=== PATIENT | male | born 1970 | race African-American/Black ===

== ENCOUNTER 2021-01-09 23:37 | Emergency (ER) | payer MEDICAID, OTHER ==
[~2021-01-09] VITALS: Ht 172.7 cm; Wt 68.0 kg
[2021-01-10 00:12] VITALS: BP 140/100
[2021-01-10] MEDS ORDERED: KETOROLAC TROMETH 60MG/2ML VIAL IM ONE (04:15)
== END 2021-01-10 08:08 | disposition home or self-care (01) ==
LOC: EDBD 23:37 → ER 23:37
DX: S46.912A Strain of unspecified muscle, fascia and tendon at shoulder and upper arm level, left arm, initial encounter (principal); X58.XXXA Exposure to other specified factors, initial encounter; Y93.89 Activity, other specified; Y92.89 Other specified places as the place of occurrence of the external cause; Y99.8 Other external cause status
CPT/HCPCS: 73030; 96372; 99283; J1885; 93005

== ENCOUNTER 2022-06-27 22:50 | Emergency (ER) | payer MEDICAID ==
[~2022-06-27] VITALS: Ht 172.7 cm; Wt 72.5 kg
[2022-06-27 23:11] VITALS: BP 137/78
== END 2022-06-28 02:51 | disposition left against medical advice (07) ==
LOC: ER 22:50 → EDBD 22:50 → ER 06-28 02:19
DX: R44.3 Hallucinations, unspecified (principal); Z53.21 Procedure and treatment not carried out due to patient leaving prior to being seen by health care provider

== ENCOUNTER 2023-07-19 23:40 | Emergency (ER) | payer MEDICAID ==
[~2023-07-19] VITALS: Ht 165.1 cm; Wt 68.0 kg
[2023-07-20 02:05] VITALS: PULSE 118; RESP 18; O2SAT 96
[2023-07-20] MEDS ORDERED: IBUP-1456 PO (02:10)
[2023-07-20] MEDS ORDERED: KETOROLAC TROMETH 60MG/2ML VIAL IM ONE (02:15)
[2023-07-20 02:37] VITALS: BP 127/93; PULSE 121; RESP 16; TEMP 98.4; O2SAT 98
== END 2023-07-20 02:48 | disposition home or self-care (01) ==
LOC: ER 23:40 → EDBD 23:40 → ER 07-20 02:48
DX: S00.83XA Contusion of other part of head, initial encounter (principal); S40.022A Contusion of left upper arm, initial encounter; G89.29 Other chronic pain; M25.551 Pain in right hip; I10 Essential (primary) hypertension; F17.210 Nicotine dependence, cigarettes, uncomplicated; Z79.1 Long term (current) use of non-steroidal anti-inflammatories (NSAID); Y04.2XXA Assault by strike against or bumped into by another person, initial encounter; Y93.89 Activity, other specified; Y92.89 Other specified places as the place of occurrence of the external cause; Y99.8 Other external cause status
CPT/HCPCS: 96372; 99283; J1885

== ENCOUNTER 2023-11-13 23:21 | Emergency (ER) | payer MEDICAID ==
[~2023-11-13] VITALS: Ht 162.6 cm; Wt 72.2 kg
[~2023-11-13 23:21] MED LIST: IBUP-1456 PO
[2023-11-13 23:51] VITALS: BP 133/94; PULSE 100; RESP 16; O2SAT 99
== END 2023-11-14 02:33 | disposition left against medical advice (07) ==
LOC: ER 23:21
DX: R45.851 Suicidal ideations (principal); F15.10 Other stimulant abuse, uncomplicated; I10 Essential (primary) hypertension; F17.210 Nicotine dependence, cigarettes, uncomplicated; F12.10 Cannabis abuse, uncomplicated; F20.9 Schizophrenia, unspecified